=== PATIENT | male | born 1995 | race Caucasian/White ===

== ENCOUNTER 2017-08-15 15:27 | Emergency (ER) | payer SELFPAY ==
[~2017-08-15] VITALS: Ht 167.6 cm; Wt 97.1 kg
[2017-08-15 15:54] VITALS: BP 109/61
--- NOTE | 2017-08-15 16:00 | NUR ---
22m bib self with the c/o 7/10 right ear pain and nasal congestion x 2 day progressively getting worse. Pt denies any fevers, chills, or throat pain. No drainage noted. Pt is aox4, rr are even and unlabored. Nad. Will continue to monitor.
--- NOTE | 2017-08-15 16:04 | NUR ---
Patient ambulated to [facility]. RN evaluating patient.
[2017-08-15 16:20] VITALS: BP 111/65
== END 2017-08-15 16:20 | disposition home or self-care (01) ==
LOC: MED 15:27
DX: H66.91 Otitis media, unspecified, right ear (principal); H72.91 Unspecified perforation of tympanic membrane, right ear
CPT/HCPCS: 99283

== ENCOUNTER 2017-08-19 17:14 | Emergency (ER) | payer SELFPAY ==
[~2017-08-19] VITALS: Ht 167.6 cm; Wt 96.6 kg
[2017-08-19 17:44] VITALS: BP 145/72
--- NOTE | 2017-08-19 17:47 | NUR ---
PT TRIAGED, AMBULATED BACK TO ER LOBBY, WAITING FOR ER BED. ERMD NOTIFIED OF PATIENT STATUS.
--- NOTE | 2017-08-19 21:00 | NUR ---
PATIENT LEFT WITHOUT BEING SEEN BY DR. Reardon. NO FURTHER CARE PROVIDED FOR PATIENT.
== END 2017-08-19 21:00 | disposition left against medical advice (07) ==
LOC: MED 17:14
DX: H92.01 Otalgia, right ear (principal); Z53.21 Procedure and treatment not carried out due to patient leaving prior to being seen by health care provider